=== PATIENT | female | born 1970 | race Caucasian/White ===

== ENCOUNTER 2017-02-10 15:45 | Emergency (ER) | payer MEDICAID, MEDICARE, OTHER ==
[~2017-02-10] VITALS: Ht 165.1 cm; Wt 62.0 kg
[~2017-02-10 15:45] MED LIST: EXCETAB2 PO; FIORIC PO; FLON0.053; FURO1TAB93 PO; HYDR1CRE EX; MONT10TA2 PO; NAPR-576 PO; POTA-243 PO; TYLETAB36 PO; VALI10TA PO; [UNRECOGNIZED DRUG - CODE] PO
[2017-02-10 16:03] VITALS: BP 143/95; PULSE 118; RESP 16; TEMP 98.9; O2SAT 98
--- NOTE | 2017-02-10 20:51 | PD ---
HPI Chief Complaint: Skin Problem Time Seen by Provider: 20:45 Travel History International Travel<30 days: No Contact w/Intl Traveler<30days: No Traveled to known affect area: No History of Present Illness HPI 46-year-old female with history of TBI and tobacco use. She presents for evaluation of 2 separate complaints. For the past 4-5 days she has had some skin redness and pain on the anterior left pretibial region. Pain is worse when walking, aching, constant. Denies fevers or chills. She thought that maybe she was bitten by a bug however she does not recall being bitten by a bug. She does shave her legs. In addition the patient has been having intermittent sharp upper chest pain for the past 4-5 days. The pain lasts only a few seconds at a time and comes and goes spontaneously. Denies any exertional chest pain, shortness of breath, nausea or vomiting, cough or congestion. Denies any personal history of coronary artery disease, family history of coronary artery disease, hypertension, hyperlipidemia, diabetes. No other complaints at this time. PFSH Past Medical History Diminished Hearing: No Hypertension: Yes ?: Not LMP: NO LONGER Past Surgical History Other Surgery: Yes (RIGHT OVARY) Social History Alcohol Use: No (DENIES) Tobacco Use: Yes (1PPD) Substance Use: No Allergies-Medications (Allergen,Severity, Reaction): Coded Allergies: No Known Allergies (Verified , 02/10/17) Reported Meds & Prescriptions Reported Meds & Active Scripts Active Keflex (Cephalexin) 500 Mg Capsule 500 Mg PO Q6H 10 Days Bactrim DS (Sulfamethoxazole-Trimethoprim) 800-160 Mg Tab 1 Tab PO BID Hydrocortisone 1 % Cre 1 % EX Q12HR PRN Reported Fioricet Tab (Acetaminophen/Butalbital/Caffeine) 1 Tab 2 Tab PO Q4-6H PRN K-Dur (Potassium Chloride) 10 Meq Tabcr 10 Meq PO DAILY Lasix (Furosemide) 40 Mg Tab 40 Mg PO DAILY Excedrin Extra Strength (Oofcabq-Vhojmwojoqutq-Doauqlpa) Ex St Tab 2 Tab PO Q4- 6H PRN Tylenol #4 (Acetaminophen/Codeine Phosphate) Acetaminophen 300/60 Codeine Tab 1 Tab PO QID PRN Clemastine Fumarate 1.34 Mg Tab 1.34 Mg PO BID Flonase (Fluticasone Propionate) 0.05 % Naspr 2 Spr NA DAILY 2 SPRAYS EACH NOSTRIL Naproxen 500 Mg Tab 500 Mg PO BID Valium (Diazepam) 10 Mg Tab 10 Mg PO BID Singulair (Montelukast Sodium) 10 Mg Tab 10 Mg PO DAILY Review of Systems Except as stated in HPI: all other systems reviewed are Neg Physical Exam Narrative GENERAL: Well-developed well-nourished female in no acute distress SKIN: Warm and dry. Cellulitis left lower pretibial region. HEAD: Atraumatic. Normocephalic. EYES: Pupils equal and round. No scleral icterus. No injection or drainage. ENT: No nasal bleeding or discharge. Mucous membranes pink and moist. NECK: Trachea midline. No JVD. CARDIOVASCULAR: Regular rate and rhythm. No murmur appreciated. RESPIRATORY: No accessory muscle use. Clear to auscultation. Breath sounds equal bilaterally. GASTROINTESTINAL: Abdomen soft, non-tender, nondistended. Hepatic and splenic margins not palpable. MUSCULOSKELETAL: No obvious deformities. No clubbing. No cyanosis. No edema. NEUROLOGICAL: Awake and alert. No obvious cranial nerve deficits. Motor grossly within normal limits. Normal speech. PSYCHIATRIC: Appropriate mood and affect; insight and judgment normal. Data Data Last Documented VS Vital Signs Date Time Temp Pulse Resp B/P (MAP) Pulse Ox O2 Delivery O2 Flow Rate FiO2 02/10/17 21:50 142/88 (106) 136/79 (98) 02/10/17 21:30 76 16 97 Room Air 02/10/17 16:03 98.9 Orders Orders Electrocardiogram (02/10/17 20:48) Basic Metabolic Panel (Bmp) (02/10/17 20:48) Ckmb (Isoenzyme) Profile (02/10/17 20:48) Complete Blood Count With Diff (02/10/17 20:48) Magnesium (Mg) (02/10/17 20:48) Troponin I (02/10/17 20:48) Chest, Single Ap (02/10/17 20:48) Ecg Monitoring (02/10/17 20:48) Bilateral Bp Monitoring (02/10/17 20:48) Iv Access Insert/Monitor (02/10/17 20:48) Oximetry (02/10/17 20:48) Oxygen Administration (02/10/17 20:48) Aspirin Chew (Aspirin Chew) (02/10/17 21:00) Sodium Chloride 0.9% Flush (Ns Flush) (02/10/17 21:00) Crutches (02/10/17 22:22) Sulfamet-Trimeth Ds 800-160 Mg (Bactrim (02/10/17 22:30) Cephalexin (Keflex) (02/10/17 22:30) Ed Discharge Order (02/10/17 22:27) Acetaminophen (Tylenol) (02/10/17 22:45) Ecg Monitoring (02/10/17 23:00) Iv Access Insert/Monitor (02/10/17 23:00) Oximetry (02/10/17 23:00) Diphenhydramine Inj (Benadryl Inj) (02/10/17 23:00) Methylprednisolone So Succ Inj (Solumedr (02/10/17 23:00) Sodium Chloride 0.9% Flush (Ns Flush) (02/10/17 23:00) Diphenhydramine (Benadryl) (02/10/17 23:15) Prednisone (Deltasone) (02/10/17 23:15) Duoneb Q15min X2 (02/10/17 23:15) Labs Laboratory Tests Test 02/10/17 21:30 White Blood Count 8.0 TH/MM3 Red Blood Count 4.76 MIL/MM3 Hemoglobin 14.9 GM/DL Hematocrit 44.7 % Mean Corpuscular Volume 93.9 FL Mean Corpuscular Hemoglobin 31.4 PG Mean Corpuscular Hemoglobin Concent 33.5 % Red Cell Distribution Width 13.6 % Platelet Count 381 TH/MM3 Mean Platelet Volume 7.7 FL Neutrophils (%) (Auto) 68.9 % Lymphocytes (%) (Auto) 20.3 % Monocytes (%) (Auto) 8.0 % Eosinophils (%) (Auto) 2.0 % Basophils (%) (Auto) 0.8 % Neutrophils # (Auto) 5.5 TH/MM3 Lymphocytes # (Auto) 1.6 TH/MM3 Monocytes # (Auto) 0.6 TH/MM3 Eosinophils # (Auto) 0.2 TH/MM3 Basophils # (Auto) 0.1 TH/MM3 CBC Comment DIFF FINAL Differential Comment Blood Urea Nitrogen 19 MG/DL Creatinine 0.59 MG/DL Random Glucose 93 MG/DL Calcium Level 8.9 MG/DL Magnesium Level 2.2 MG/DL Sodium Level 137 MEQ/L Potassium Level 3.6 MEQ/L Chloride Level 103 MEQ/L Carbon Dioxide Level 27.7 MEQ/L Anion Gap 6 MEQ/L Estimat Glomerular Filtration Rate 109 ML/MIN Total Creatine Kinase 62 U/L Troponin I LESS THAN 0.02 NG/ML MDM Medical Decision Making Medical Screen Exam Complete: Yes Emergency Medical Condition: Yes Medical Record Reviewed: Yes Differential Diagnosis Cellulitis, erysipelas, necrotizing fasciitis, osteomyelitis, DVT, acute coronary syndrome, costochondritis, pneumothorax, pericarditis, myocarditis, pulmonary embolism Narrative Course 46-year-old female with cellulitis to the left lower extremity. Over the past 4 days She has also been having occasional spurts of sharp chest pain which lasts for several seconds at a time, very atypical, currently not experiencing any pain. Plan is for basic lab work, EKG, chest x-ray. EKG reveals sinus rhythm, nonspecific T-wave abnormalities. CONCLUSION: No acute cardiac disease. Abnormal appearance of the right shoulder which may be related to prior trauma. Correlation recommended. The patient reports that she had prior fracture to the right shoulder in the 90s and this is likely the etiology of this abnormality. The patient's cardiac enzymes are negative. Her chest pain is atypical and her heart score is 2. At this point in time the plan will be to discharge the patient with oral antibiotics for her cellulitic changes and have her follow-up with her primary care physician. She is agreeable. 2300: Just prior to discharge the patient began complaining of some dyspnea, the sensation of swelling to her lips and periorbital region bilaterally. Objectively she has slight wheezing with no obvious angioedema. The patient is being given oral redness, Benadryl and DuoNeb therapy. The patient is being signed out for a short period of observation at the end of my shift. Diagnosis Primary Impression: Cellulitis of left lower extremity Additional Impression: Atypical chest pain Additional Instructions: Medication as prescribed. Elevate the affected leg as much as possible. Follow -up with primary care physician for recheck in 2 days and return for any acutely new or worsening symptoms. Med/Other Pt SpecificInfo: Prescription(s) given Scripts Cephalexin (Keflex) 500 Mg Capsule 500 MG PO Q6H for Infection for 10 Days, #40 CAP 0 Refills Prov: Atiya Hawkins MD 02/10/17 Sulfamethoxazole-Trimethoprim (Bactrim DS) 800-160 Mg Tab 1 TAB PO BID for Infection, #20 TAB 0 Refills Prov: Atiya Hawkins MD 02/10/17 Disposition: 01 DISCHARGE HOME Condition: Stable Marek Curry Feb 10, 2017 20:51
[2017-02-10] MEDS ORDERED: ASPIRIN 81 MG CHEW TAB PO ONE (21:00)
[2017-02-10] MEDS ORDERED: SODIUM CHLORIDE 0.9% FLUSH 10 ML FLUSH IVF PRN (21:00)
[2017-02-10 21:30] VITALS: BP 138/79; PULSE 76; RESP 16; O2SAT 97
[2017-02-10 21:50] VITALS: BP_SYST 136; BP_SYST 142; BP_DIAS 79; BP_DIAS 88
[2017-02-10 21:55] LABS: AUTOMATED NEUTROPHIL # 5.5 TH/MM3 (1.8-7.7); BASOPHIL # 0.1 TH/MM3 (0-0.2); BASOPHIL % 0.8 % (0.0-2.0); EOSINOPHIL # 0.2 TH/MM3 (0-0.4); HEMATOCRIT 44.7 % (35.0-46.0); HEMOGLOBIN 14.9 GM/DL (11.6-15.3); LYMPH % 20.3 % (9.0-44.0); LYMPHOCYTE # 1.6 TH/MM3 (1.0-4.8); MEAN CELL VOLUME 93.9 FL (80.0-100.0); MEAN CORPUSCULAR HEMOGLOBIN 31.4 PG (27.0-34.0); MEAN CORPUSCULAR HGB CONC 33.5 % (32.0-36.0); MEAN PLATELET VOLUME 7.7 FL (7.0-11.0); MONOCYTE # 0.6 TH/MM3 (0-0.9); NEUT % 68.9 % (16.0-70.0); PLATELET COUNT 381 TH/MM3 (150-450); RED BLOOD COUNT 4.76 MIL/MM3 (4.00-5.30); RED CELL DISTRIBUTION WIDTH 13.6 % (11.6-17.2)
--- NOTE | 2017-02-10 22:01 | RADRPT ---
EXAM DATE/TIME: 02/10/2017 21:44 [facility] COMPARISON: No previous studies available for comparison. INDICATIONS : Chest pain. MEDICAL HISTORY : None. SURGICAL HISTORY : None. ENCOUNTER: Initial ACUITY: 1 day PAIN SCORE: 4/10 LOCATION: Bilateral chest FINDINGS: A single view of the chest demonstrates the lungs to be symmetrically aerated without evidence of mas s, infiltrate or effusion. The cardiomediastinal contours are unremarkable. Exostotic bony abnormali ties involving the right shoulder may be post traumatic. Correlation recommended.. CONCLUSION: No acute cardiac disease. Abnormal appearance of the right shoulder which may be related to prior tra demarcus. Correlation recommended Omero Amaro MD on February 10, 2017 at 21:58 Board Certified Radiologist. This report was verified electronically.
[2017-02-10 22:13] LABS: BICARBONATE 27.7 MEQ/L (21.0-32.0); BLOOD UREA NITROGEN 19 MG/DL (7-18); CALCIUM 8.9 MG/DL (8.5-10.1); CHLORIDE 103 MEQ/L (98-107); CREATININE 0.59 MG/DL (0.50-1.00); GLOMERULAR FILTRATION RATE 109 ML/MIN (>89); GLUCOSE,RANDOM 93 MG/DL (74-106); MAGNESIUM 2.2 MG/DL (1.5-2.5); SODIUM (NA) 137 MEQ/L (136-145)
[2017-02-10 22:16] LABS: TROPONIN I LESS THAN 0.02 NG/ML (0.02-0.05)
[2017-02-10] MEDS ORDERED: BACT800T5 PO ×2 (22:22→22:23)
[2017-02-10] MEDS ORDERED: CEPH-460 PO ×2 (22:22→22:23)
[2017-02-10] MEDS ORDERED: SULFAMETHOXAZOLE-TRIMETHOPRIM DS 800-160 MG TAB PO ONE (22:30)
[2017-02-10] MEDS ORDERED: CEPHALEXIN MONOHYDRATE 500 MG CAP PO ONE (22:30)
[2017-02-10] MEDS ORDERED: ACETAMINOPHEN 500 MG CPLT PO ONE (22:45)
[2017-02-10] MEDS ORDERED: SODIUM CHLORIDE 0.9% FLUSH 10 ML FLUSH IV FLUSH PRN (23:00)
[2017-02-10] MEDS ORDERED: methylPREDNISolone SOD SUCC 125 MG/2 ML VIAL IV PUSH ONE (23:00)
[2017-02-10] MEDS ORDERED: diphenhydrAMINE HCL 50 MG/ML VIAL IVP ONE (23:00)
[2017-02-10 23:10] VITALS: BP 91/52; PULSE 122; RESP 16; O2SAT 85; O2SAT 89
[2017-02-10] MEDS: RESP: ALBUTEROL 2.5 MG/IPRATROPIUM 0.5 MG NEB (SCH) INH (23:12)
[2017-02-10] MEDS ORDERED: predniSONE 20 MG TAB PO ONE (23:15)
[2017-02-10] MEDS ORDERED: diphenhydrAMINE HCL 50 MG CAP PO ONE (23:15)
[2017-02-10] MEDS ORDERED: SODIUM CHLOR 0.9% 1000 ML INJ 1,000 ML IV ONE (23:15)
[2017-02-10] MEDS ORDERED: diphenhydrAMINE HCL 50 MG/ML VIAL ONE (23:21)
[2017-02-10] MEDS ORDERED: methylPREDNISolone SOD SUCC 125 MG/2 ML VIAL ONE (23:21)
[2017-02-11 00:38] VITALS: BP 122/74; PULSE 107; RESP 18; O2SAT 96
[2017-02-11 00:44] VITALS: O2SAT 97
[2017-02-11] MEDS ORDERED: BENA25TA6 PO (01:08)
[2017-02-11] MEDS ORDERED: VENTAER INH (01:14)
--- NOTE | 2017-02-11 01:14 | PD ---
Physical Exam Narrative Patient was discharge after she was seen by the PA. However after getting her antibiotic she started complaining of tingling in her lips and mouth and feeling of her throat swelling up. Patient was brought up to the pod so that I could observe her for 2 hours. Patient was given Benadryl and prednisone. She continued to do okay. I personally did not see any lip or tongue swelling. Pharynx looked good as well. The swelling did not worsen. I was comfortable discharging her home eventually. Data Data Last Documented VS Orders Orders Electrocardiogram (02/10/17 20:48) Basic Metabolic Panel (Bmp) (02/10/17 20:48) Ckmb (Isoenzyme) Profile (02/10/17 20:48) Complete Blood Count With Diff (02/10/17 20:48) Magnesium (Mg) (02/10/17 20:48) Troponin I (02/10/17 20:48) Chest, Single Ap (02/10/17 20:48) Ecg Monitoring (02/10/17 20:48) Bilateral Bp Monitoring (02/10/17 20:48) Iv Access Insert/Monitor (02/10/17 20:48) Oximetry (02/10/17 20:48) Oxygen Administration (02/10/17 20:48) Aspirin Chew (Aspirin Chew) (02/10/17 21:00) Sodium Chloride 0.9% Flush (Ns Flush) (02/10/17 21:00) Crutches (02/10/17 22:22) Sulfamet-Trimeth Ds 800-160 Mg (Bactrim (02/10/17 22:30) Cephalexin (Keflex) (02/10/17 22:30) Ed Discharge Order (02/10/17 22:27) Acetaminophen (Tylenol) (02/10/17 22:45) Ecg Monitoring (02/10/17 23:00) Iv Access Insert/Monitor (02/10/17:00) Oximetry (02/10/17 23:00) Diphenhydramine Inj (Benadryl Inj) (02/10/17 23:00) Methylprednisolone So Succ Inj (Solumedr (02/10/17 23:00) Sodium Chloride 0.9% Flush (Ns Flush) (02/10/17 23:00) Diphenhydramine (Benadryl) (02/10/17 23:15) Prednisone (Deltasone) (02/10/17 23:15) Albuterol-Ipratropium Neb (Duoneb Neb) (02/10/17 23:15) Sodium Chlor 0.9% 1000 Ml Inj (Ns 1000 M (02/10/17 23:15) Diphenhydramine Inj (Benadryl Inj) (02/10/17 23:21) Methylprednisolone So Succ Inj (Solumedr (02/10/17 23:21) Labs Laboratory Tests Test 02/10/17 21:30 White Blood Count 8.0 TH/MM3 Red Blood Count 4.76 MIL/MM3 Hemoglobin 14.9 GM/DL Hematocrit 44.7 % Mean Corpuscular Volume 93.9 FL Mean Corpuscular Hemoglobin 31.4 PG Mean Corpuscular Hemoglobin Concent 33.5 % Red Cell Distribution Width 13.6 % Platelet Count 381 TH/MM3 Mean Platelet Volume 7.7 FL Neutrophils (%) (Auto) 68.9 % Lymphocytes (%) (Auto) 20.3 % Monocytes (%) (Auto) 8.0 % Eosinophils (%) (Auto) 2.0 % Basophils (%) (Auto) 0.8 % Neutrophils # (Auto) 5.5 TH/MM3 Lymphocytes # (Auto) 1.6 TH/MM3 Monocytes # (Auto) 0.6 TH/MM3 Eosinophils # (Auto) 0.2 TH/MM3 Basophils # (Auto) 0.1 TH/MM3 CBC Comment DIFF FINAL Differential Comment Blood Urea Nitrogen 19 MG/DL Creatinine 0.59 MG/DL Random Glucose 93 MG/DL Calcium Level 8.9 MG/DL Magnesium Level 2.2 MG/DL Sodium Level 137 MEQ/L Potassium Level 3.6 MEQ/L Chloride Level 103 MEQ/L Carbon Dioxide Level 27.7 MEQ/L Anion Gap 6 MEQ/L Estimat Glomerular Filtration Rate 109 ML/MIN Total Creatine Kinase 62 U/L Troponin I LESS THAN 0.02 NG/ML MDM Supervised Visit with DENICE: No Diagnosis Primary Impression: Cellulitis of left lower extremity Additional Impressions: Atypical chest pain Allergic reaction Qualified Codes: T78.40XA - Allergy, unspecified, initial encounter Patient Instructions: General Instructions Departure Forms: Tests/Procedures Additional Instruction: Medication as prescribed. Elevate the affected leg as much as possible. Follow -up with primary care physician for recheck in 2 days and return for any acutely new or worsening symptoms. Scripts Albuterol 18 GM Inh (Ventolin Hfa 18 GM Inh) 90 Mcg/Act Aer 2 PUFF INH Q4-6H Y for SHORTNESS OF BREATH, #1 INHALER 0 Refills Prov: Atiya Hawkins MD 02/11/17 Diphenhydramine HCl (Benadryl Allergy) 25 Mg Tablet 1 TAB PO Q6HR, #20 Prov: Atiya Hawkins MD 02/11/17 Cephalexin (Keflex) 500 Mg Capsule 500 MG PO Q6H for Infection for 10 Days, #40 CAP 0 Refills Prov: Atiya Hawkins MD 02/10/17 Sulfamethoxazole-Trimethoprim (Bactrim DS) 800-160 Mg Tab 1 TAB PO BID for Infection, #20 TAB 0 Refills Prov: Atiya Hawkins MD 02/10/17 Disposition: 01 DISCHARGE HOME Condition: Stable Atiya Hawkins MD Feb 11, 2017 01:14
--- NOTE | 2017-02-11 14:56 | EKG ---
Date Performed: 02/10/2017 Time Performed: 21:16:45 PTAGE: 46 years EKG: Sinus rhythm POSSIBLE RIGHT VENTRICULAR CONDUCTION DELAY NONSPECIFIC T-WAVE ABNORMALITY BORDERLINE ECG NO PREVIOUS TRACING DOCTOR: Baljeet Carreon Interpretating Date/Time 02/11/2017 14:53:30
== END 2017-02-11 03:32 | disposition home or self-care (01) ==
LOC: NEPB 15:45 → NEPC 02-11 03:32
DX: L03.116 Cellulitis of left lower limb (principal); R07.89 Other chest pain; T78.40XA Allergy, unspecified, initial encounter; F17.200 Nicotine dependence, unspecified, uncomplicated; I10 Essential (primary) hypertension; R06.00 Dyspnea, unspecified; Z79.899 Other long term (current) drug therapy
CPT/HCPCS: 71010; 80048; 82550; 83735; 84484; 85025; 93005; 94640; 94664; 99284; E0113; J1200; J2930; J7030